=== PATIENT | male | born 1970 | race Caucasian/White ===

== ENCOUNTER → 2019-05-17 | Outpatient (CLI) | payer OTHER ==
--- NOTE | 2019-05-18 00:16 | MR ---
EXAMINATION TYPE: MR shoulder RT wo con DATE OF EXAM: 05/17/2019 COMPARISON: None HISTORY: Right shoulder pain, numbness down arm TECHNIQUE: Multiplanar, multisequence imaging of the right shoulder is performed without contrast. FINDINGS: There is fluid around the biceps tendon. The glenoid nicola appear intact. Subscapularis tendon is int act. There is extensive spurring at the AC joint. There is abnormal significant increased signal in t he supraspinatus tendon in the subacromial joint space and extending to the greater tuberosity. There are small areas of retraction of the tendon. There is a 7 mm degenerative cyst in the greater tubero sity of the humerus.. IMPRESSION: There is a large rotator cuff tear with partial retraction of the supraspinatus tendon. 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 Degenerative cyst in the humeral head.
== END ==
LOC: RADMRIMAIN 18:22
PROVIDERS: ATTEND Physician Assistant
DX: M75.101 Unspecified rotator cuff tear or rupture of right shoulder, not specified as traumatic (principal); M19.011 Primary osteoarthritis, right shoulder; M79.9 Soft tissue disorder, unspecified

== ENCOUNTER → 2019-06-10 | Outpatient (CLI) | payer OTHER ==
--- NOTE | 2019-06-10 15:54 | MR ---
EXAMINATION TYPE: MR shoulder LT wo con DATE OF EXAM: 06/10/2019 COMPARISON: None HISTORY: Unspc injury of muscle/tendon rotator cuff tear, left shoulder TECHNIQUE: Multiplanar, multisequence imaging of the left shoulder is performed without contrast. FINDINGS: There is significant increased signal at the greater tuberosity of the humerus related to full-thickn ess tear and retraction of the supraspinatus tendon. There is mild shoulder joint effusion. There is some osteoarthritic change at the glenohumeral joint with mild spurring. The glenoid nicola appear int act. Subscapularis tendon is intact. Biceps tendon is intact. There is no evidence of a fracture. The re is mild spurring at the AC joint. IMPRESSION: There is large full-thickness tear of the supraspinatus tendon with partial retraction. Mild osteoart hritic changes at the glenohumeral joint. Shoulder joint effusion consistent with synovitis.
== END | disposition home or self-care (01) ==
LOC: RADMRIMAIN 09:54
PROVIDERS: ATTEND Physician Assistant
DX: M75.122 Complete rotator cuff tear or rupture of left shoulder, not specified as traumatic (principal); M19.012 Primary osteoarthritis, left shoulder; M65.812 Other synovitis and tenosynovitis, left shoulder; S46.002S Unspecified injury of muscle(s) and tendon(s) of the rotator cuff of left shoulder, sequela

== ENCOUNTER → 2019-09-22 | Outpatient (CLI) | payer OTHER ==
--- NOTE | 2019-09-22 13:45 | MM ---
Reason for exam: clinical finding. History: Family history of breast cancer in mother at age 35. Physical Findings: Nurse Summary: 2cm nodule in the right breast at 11-12 o'clock (nurse titi). MG Diagnostic Mammo w CAD DENIS Bilateral CC and MLO view(s) were taken. The breast tissue is heterogeneously dense. This may lower the sensitivity of mammography. Focal asymmetry right subareolar, density corresponds to BB. These results were verbally communicated with the patient and result sheet given to the patient on 09/22/19. ASSESSMENT: Incomplete: need additional imaging evaluation, BI-RAD 0 RECOMMENDATION: Ultrasound of the right breast.
--- NOTE | 2019-09-22 13:47 | USB ---
Reason for exam: additional evaluation requested from abnormal screening. History: Family history of breast cancer in mother at age 35. US Breast RT Right complete breast ultrasound includes all four quadrants, the retroareolar region and axilla. Finding demonstrates a 1.9 x 0.8 x 2.1cm oval, hypoechoic, central hyperechoic lesion at 11 o'clock. These results were verbally communicated with the patient and result sheet given to the patient on 09/22/19. ASSESSMENT: Suspicious, BI-RAD 4 RECOMMENDATION: Ultrasound core biopsy of the right breast. Called Dr. Juarez's office with mammographic findings and has scheduled an appointment for the patient for 10/13/19 at 12:[address] Ramires. Biopsy scheduled for 10/18/19 at 2:20. PRELIMINARY REPORT CALLED AND FAXED TO DR. RAMIRES ON 09/22/19.
== END | disposition home or self-care (01) ==
LOC: RADMAMWWP 10:26
PROVIDERS: ATTEND Family Medicine
DX: N62 Hypertrophy of breast (principal)
CPT/HCPCS: 77066

== ENCOUNTER → 2019-10-13 | Outpatient (CLI) | payer OTHER ==
[2019-10-13 12:08] VITALS: BP 151/89; PULSE 92; RESP 18; TEMP 97.3
--- NOTE | 2019-10-13 12:39 | P.GSHP ---
History of Present Illness H&P Date: 10/13/19 Chief Complaint: LUMP IN RIGHT BRESAT FOR TWO MONTHS Duran is a 49 year old white male seen in consultation for Dr. Juarez who noted a nodule in his right breast several months ago. He subsequently underwent a bilateral mammogram which revealed focal asymmetry in the right subareolar area after which she had an ultrasound of the right breast which revealed a 1.9 x 2.1 cm oval hypoechoic lesion at 11:00. The patient states that it has not changed in size recently. It is tender to palpation. He has not had any nipple discharge. She has not noted any lumps in his left breast. No nipple discharge or changes. He has had no recent trauma or infection in the breast. He has not noted any lumps or masses in his testicles. He is not taking any medication and has not had any recent changes in any medications. Family History: mother: breast cancer twice Surgical History: left rotator cuff surgery MEDICAL history: Bilateral torn rotator cuff muscles left has been repaired Social History: smoke: none alcohol: weekly drugs: daily, recreation - Constitutional Constitutional: Denies chills, Denies fever - EENT Eyes: denies blurred vision, denies pain Ears: deny: decreased hearing, tinnitus Ears, nose, mouth and throat: Reports headache, Denies sore throat - Breasts Breasts: bilateral: as per HPI - Cardiovascular Cardiovascular: Denies chest pain, Denies shortness of breath - Respiratory Respiratory: Denies cough, Denies 7 - Gastrointestinal Gastrointestinal: Denies abdominal pain, Denies diarrhea, Denies nausea, Denies vomiting - Genitourinary (Male) Genitourinary: Denies dysuria, Denies hematuria - Musculoskeletal Musculoskeletal: Denies myalgias - Integumentary Integumentary: Denies pruritus, Denies rash - Neurological Neurological: Denies numbness, Denies weakness - Psychiatric Comment: PTSD, ADHD, bipolar Psychiatric: Reports anxiety, Reports depression - Endocrine Endocrine: Denies fatigue, Denies weight change - Hematologic/Lymphatic Comment: none Past Medical History History of Any Multi-Drug Resistant Organisms: None Reported Smoking Status: Never smoker Medications and Allergies Home Medications Medication Instructions Recorded Confirmed Type Bisacodyl [Dulcolax] 5 mg PO DAILY 10/13/19 10/13/19 History HYDROcodone/APAP 7.5-325MG [Longs 1 tab PO Q4H PRN 10/13/19 10/13/19 History 7.5-325] Ibuprofen [Motrin] 600 mg PO Q8HR PRN 10/13/19 10/13/19 History Multivitamin [Multivitamins Adult 1 each PO DAILY 10/13/19 10/13/19 History Gummies] Allergies Allergy/AdvReac Type Severity Reaction Status Date / Time No Known Allergies Allergy Verified 10/13/19 12:08 Surgical - Exam Vital Signs Temp Pulse Resp BP Pulse Ox 97.3 F L 92 18 151/89 99 10/13/19 12:05 10/13/19 12:05 10/13/19 12:05 10/13/19 12:05 10/13/19 12:05 BMI 24.4 - General well developed, well nourished, no distress - Eyes normal ocular movement - ENT no hearing loss, no congestion - Neck no masses, trachea midline - Respiratory normal respiratory effort, clear to auscultation - Cardiovascular Rhythm: regular Heart Sounds: normal: S1, S2 - Abdomen Abdomen: soft, non tender, no guarding, no rigid, no rebound - Genitourinary No testicular masses noted testicles present - Integumentary swelling lower extremities/ankels - Musculoskeletal left arm in a sling status post rotator cuff surgery normal gait - Psychiatric oriented to time, oriented to person, oriented to place, speech is normal Breast examination: Right breast: Approximately 1.6 x 1 cm firm nodule posterior to the nipple areolar complex otherwise no changes of concern Right axilla: No adenopathy of concern Left breast: No dominant masses or nodules of concern Left axilla: No adenopathy of concern Results mammogram and ultrasound results reviewed Assessment and Plan Assessment: Impression: 1. Mass right breast 2. Abnormal ultrasound right breast 3. No testicular masses 4. Recent left rotator cuff surgery 5. ankel swelling bilateral lower extremities Plan: 1. Right breast ultrasound core biopsy 2. Patient is following with primary care doctor related to swollen ankles 3. Follow-up after ultrasound-guided core biopsy procedure discussed with the patient and his . Risks and benefits of procedure discussed patient understands and wishes to proceed. Cc: Dr. Juarez encounter 30 minutes, > 50% of time in planning and counselling
== END | disposition home or self-care (01) ==
LOC: WWCWWP 11:55
PROVIDERS: ATTEND Surgery
DX: Z53.9 Procedure and treatment not carried out, unspecified reason (principal)

== ENCOUNTER → 2019-10-18 | Day surgery (SDC) | payer OTHER ==
[2019-10-18 13:42] VITALS: RESP 16
[2019-10-18 15:05] VITALS: BP 118/70; PULSE 60; TEMP 98.2
--- NOTE | 2019-10-18 15:39 | USB ---
EXAMINATION TYPE: US biopsy breast VAD RT DATE OF EXAM: 10/18/2019 CLINICAL HISTORY: R92.8 PREVIOUS ABNORMAL MAMMOGRAM. TECHNIQUE: Ultrasound guided core biopsy of right breast. COMPARISON: Right breast ultrasound dated 09/22/2019 FINDINGS: The procedure of ultrasound guided core biopsy was explained to the patient. Benefits, alternatives, and risks were discussed. An informed consent was then obtained. Preprocedural timeout was performed. The patient was placed in supine positioning for imaging and for the procedure. The overlying skin was prepped and draped in usual sterile fashion. 10 cc of 1% lidocaine was used as anesthetic into the skin and subcutaneous tissue up to a palpable 2.1 cm mass at the 11:00 position in the retroareolar right breast Under ultrasound guidance, a 12-gauge vacuum assisted biopsy gun device was used to obtain 5 core samples. No biopsy marker was left in the palpable and readily visible sonographic mass. Therefore, no postprocedure mammogram was obtained. The patient tolerated the procedure well without any immediate complication. The patient was kept in the radiology department for short stay after the procedure and then discharged home in stable condition. IMPRESSION: Successful, uncomplicated ultrasound guided core biopsy of a 2.1 cm retroareolar right breast mass at the 11:00 position, suspicion for nodular gynecomastia, full pathology results to follow. Pathology Results: Benign RIGHT BREAST, ULTRASOUND GUIDED CORE BIOPSY: Gynecomastia. Recommendation Surgical consult of the right breast. Clinical management. [facility] [place] [facility]
== END ==
LOC: RADUSWWP 13:17
PROVIDERS: ATTEND Surgery
DX: N62 Hypertrophy of breast (principal)
CPT/HCPCS: 88305; 19083; J2001

== ENCOUNTER → 2019-11-02 | Outpatient (CLI) | payer OTHER ==
[2019-11-02 09:38] VITALS: BP 127/88; PULSE 73; RESP 18; TEMP 97.9
--- NOTE | 2019-11-02 09:52 | P.PN ---
Subjective Progress Note Date: 11/02/19 Principal diagnosis: Gynecomastia right breast Duran is a 49-year-old white male who presents for results of an ultrasound core biopsy of his right breast. He noted a nodule in his right breast and an ultrasound confirmed a 1.9 x 2.1 cm oval hypoechoic lesion at 11:00. The deepti ent did not feel anything of concern in the left breast. A bilateral mammogram was performed which revealed focal asymmetry in the right subareolar area. The patient had an ultrasound-guided core biopsy performed on 3419. This revealed gynecomastia. The patient states that he has not had any problems related to the biopsy until recently he has noticed some tenderness. He has no fever or chills. And no evidence of hematoma. The patient has been taking ibuprofen for a left shoulder rotator cuff surgery. Objective - Vital Signs Vital signs: Vital Signs Temp 97.9 F 11/02/19 09:32 Pulse 73 11/02/19 09:32 Resp 18 11/02/19 09:32 BP 127/88 11/02/19 09:32 Pulse Ox 97 11/02/19 09:32 Intake & Output 11/01/19 11/02/19 11/02/19 18:59 06:59 18:59 Weight 79.379 kg - Exam BMI 25.8 - Constitutional General appearance: Present: average body habitus - EENT Eyes: Present: EOMI ENT: Present: hearing grossly normal - Neck Neck: Present: normal ROM - Respiratory Respiratory: bilateral: CTA - Cardiovascular Rhythm: regular Heart sounds: normal: S1, S2 - Integumentary Integumentary Comment(s): Right breast: No evidence of any infection, no evidence of hematoma, gynecomastia present - Musculoskeletal Musculoskeletal Comment(s): Patient's left arm is in a sling has had recent rotator cuff surgery Musculoskeletal: Present: gait normal - Psychiatric Psychiatric: Present: A&O x's 3, appropriate affect, intact judgment & insight Assessment and Plan Assessment: Impression: 1. Gynecomastia right breast 2. No testicular masses as noted on last exam 3. Recent left rotator cuff surgery Plan: 1. Patient wishes surgery for the gynecomastia he states that it is tender and it bothers him that he is asymmetry of the breast 2. At this time we will not schedule the surgery secondary to not doing elective cases because of the [place] virus 3. Patient to follow up in 2 months CC: Dr. Juarez Encounter: 15 minutes, greater than 50% of time in planning and counseling Time with Patient: Less than 30
== END | disposition home or self-care (01) ==
LOC: WWCWWP 09:25
PROVIDERS: ATTEND Surgery
DX: Z53.9 Procedure and treatment not carried out, unspecified reason (principal)

== ENCOUNTER → 2020-01-05 | Outpatient (CLI) | payer OTHER ==
--- NOTE | 2020-01-05 10:53 | P.PN ---
Subjective Progress Note Date: 01/05/20 Principal diagnosis: Gynecomastia right breast Duran is a 49 year old white male seen in consultation for Dr. Juarez who noted a nodule in his right breast several months ago. He subsequently underwent a bilateral mammogram which revealed focal asymmetry in the right subareolar area after which she had an ultrasound of the right breast which revealed a 1.9 x 2.1 cm oval hypoechoic lesion at 11:00. An ultrasound core biopsy was performed and 3420. This revealed gynecomastia. The patient states that it has not changed in size recently. It is tender to palpation. He has not had any nipple discharge. She has not noted any lumps in his left breast. No nipple discharge or changes. He has had no recent trauma or infection in the breast. He has not noted any lumps or masses in his testicles. He is not taking any medication and has not had any recent changes in any medications. Family History: mother: breast cancer twice Surgical History: left rotator cuff surgery/ physica therapy was not done secondary to [place] virus MEDICAL history: Bilateral torn rotator cuff muscles left has been repaired Social History: smoke: none alcohol: weekly drugs: daily, recreation - Constitutional Constitutional: Denies chills, Denies fever - EENT Eyes: denies blurred vision, denies pain Ears: deny: decreased hearing, tinnitus Ears, nose, mouth and throat: Reports headache, Denies sore throat - Breasts Breasts: bilateral: as per HPI - Cardiovascular Cardiovascular: Denies chest pain, Denies shortness of breath - Respiratory Respiratory: Denies cough - Gastrointestinal Gastrointestinal: Denies abdominal pain, Denies diarrhea, Denies nausea, Denies vomiting - Genitourinary (Male) Genitourinary: Denies dysuria, Denies hematuria - Musculoskeletal Musculoskeletal: Denies myalgias - Integumentary Integumentary: Denies pruritus, Denies rash - Neurological Neurological: Denies numbness, Denies weakness - Psychiatric Comment: PTSD, ADHD, bipolar Psychiatric: Reports anxiety, Reports depression - Endocrine Endocrine: Denies fatigue, Denies weight change - Hematologic/Lymphatic Comment: none Past Medical History History of Any Multi-Drug Resistant Organisms: None Reported Smoking Status: Never smoker Medications and Allergies Home Medications Medication Instructions Recorded Confirmed Type Bisacodyl [Dulcolax] 5 mg PO DAILY 10/13/19 10/13/19 History HYDROcodone/APAP 7.5-325MG [Whitt 1 tab PO Q4H PRN 10/13/19 10/13/19 History 7.5-325] Ibuprofen [Motrin] 600 mg PO Q8HR PRN 10/13/19 10/13/19 History Multivitamin [Multivitamins Adult 1 each PO DAILY 10/13/19 10/13/19 History Gummies] Allergies Objective - Vital Signs Vital signs: Vital Signs Temp 98.2 F 01/05/20 10:02 Pulse 60 01/05/20 10:02 Resp 18 01/05/20 10:02 BP 123/82 01/05/20 10:02 Pulse Ox 98 01/05/20 10:02 Intake & Output 01/04/20 01/05/20 01/05/20 18:59 06:59 18:59 Weight 79.379 kg - Exam BMI 25.8 - Constitutional General appearance: Present: cooperative - EENT Eyes: Present: EOMI ENT: Present: hearing grossly normal - Neck Neck: Present: normal ROM - Respiratory Respiratory: bilateral: CTA - Cardiovascular Rhythm: regular Heart sounds: normal: S1, S2 - Gastrointestinal General gastrointestinal: Present: normal bowel sounds, soft - Integumentary Integumentary: Present: normal turgor - Musculoskeletal Musculoskeletal: Present: gait normal - Psychiatric Psychiatric: Present: A&O x's 3, appropriate affect, intact judgment & insight - Additional findings Additional findings: breast exam: inspection: no nipple inversion Right breast: Multi-positional exam reveals firm tissue behind the nipple areolar complex which is tender to palpation this is approximately 2 cm x 2 cm in size Right axilla: No adenopathy of concern Left breast: No dominant masses or nodules of concern, no evidence of definite gynecomastia on the left side Left axilla: No adenopathy of concern Assessment and Plan Assessment: Impression: 1. Symptomatic gynecomastia right breast 2. Status post left rotator cuff surgery 3.bipolar, PTSD, ADHD all stable on no medications for this Plan: 1. resection of right breast symptomatic gynecomastia 2. Preoperative clearance from Dr. Juarez Risks and benefits of the procedure have been discussed with the patient. Risks include but are not limited to bleeding, infection, reaction to the anesthetic. He understands he may still have tenderness in the breast. He also understands there will be asymmetry between the breast. This is not being done for cosmetic reasons and is being done because of symptomatic painful gynecomastia. He understands and wishes to proceed. CC: Dr. Juarez encounter 20 minutes, > 50% of time in planning and counselling Time with Patient: Less than 30
[2020-01-05 11:34] VITALS: BP 123/82; PULSE 60; RESP 18; TEMP 98.2
== END | disposition home or self-care (01) ==
LOC: WWCWWP 09:54
PROVIDERS: ATTEND Surgery
DX: Z53.9 Procedure and treatment not carried out, unspecified reason (principal)